=== PATIENT | male | born 1990 | race Caucasian/White ===

== ENCOUNTER 2023-01-16 16:02 | Emergency (ER) | payer SELFPAY ==
[2023-01-16] MEDS ORDERED: Ibuprofen 200 MG TAB ONE (18:38)
== END 2023-01-16 18:40 | disposition home or self-care (01) ==
LOC: CSHERS 16:02
DX: H66.92 Otitis media, unspecified, left ear (principal); J06.9 Acute upper respiratory infection, unspecified; F17.210 Nicotine dependence, cigarettes, uncomplicated
CPT/HCPCS: 71045